=== PATIENT | male | born 1965 | race Two or more races ===

== ENCOUNTER 2018-11-06 23:01 | Inpatient (IN) | payer OTHER ==
[~2018-11-06] VITALS: Ht 182.9 cm; Wt 83.9 kg
--- NOTE | 2018-11-06 23:25 | NUR ---
RLQ PAIN X A FEW DAYS BUT SUDDEN INCREASE TO 10/10 NOW, WOKE HIM UP, STABBING PAIN. RECENTLY WENT TO URGENT CARE WHERE THEY DIAGNOSED HIM WITH DIVERTICULITIS. ON 2 DAYS OF ABX. AOX4, VSS, RESPIRATIONS EVEN AND UNLABORED. NO OTHER COMPLAINTS. READY FOR EVAL. WILL CONT TO MONITOR.
[2018-11-06] MEDS ORDERED: KETOROLAC TROMETHAMINE INJ 30 MG/ML VIAL IV ONE (23:30)
[2018-11-06] MEDS ORDERED: ONDANSETRON HCL/PF 4 MG/2 ML VIAL IVP ONE (23:30)
[2018-11-06] MEDS ORDERED: HYDROMORPHONE INJ 2 MG/ML DISP.SYRIN IV ONE (23:30)
[2018-11-06] MEDS ORDERED: IV NS 0.9% 1,000 ML BAG IV ONE (23:30)
[2018-11-06] MEDS ORDERED: KETOROLAC TROMETHAMINE INJ 30 MG/ML VIAL ONE (23:34)
[2018-11-06] MEDS ORDERED: ONDANSETRON HCL/PF 4 MG/2 ML VIAL ONE (23:34)
[2018-11-06] MEDS ORDERED: HYDROMORPHONE 1 MG/1 ML DISP.SYRIN ONE (23:34)
[2018-11-06 23:49] LABS: APPEARANCE,URINE SL CLOUDY (CLEAR); BILIRUBIN,URINE NEGATIVE (NEGATIVE); BLOOD, URINE NEGATIVE Ery/uL (NEGATIVE); COLOR,URINE YELLOW (YELLOW); KETONES,URINE NEGATIVE (NEGATIVE); LEUKOCYTE ESTERASE ,URINE NEGATIVE (NEGATIVE); NITRITE, URINE NEGATIVE (NEGATIVE); PH,URINE 7.5 (5.0-8.0); PROTEIN,URINE NEGATIVE (NEGATIVE); UGLUCOSE NEGATIVE (NEGATIVE); UROBILINOGEN,URINE 0.2 EU/dL (0.2)
[2018-11-07 00:03] LABS: CALCIUM, SERUM 8.5 mg/dL (8.5-10.1); CARBON DIOXIDE 28 mmol/L (21-32); CHLORIDE 102 mmol/L (98-107); CREATININE 1.3 mg/dL (0.6-1.3); GLUCOSE 109 mg/dL (74-106); POTASSIUM 3.6 mmol/L (3.5-5.1); SODIUM SERUM 139 mmol/L (136-145); UREA NITROGEN, BLOOD 22 mg/dL (7-18)
--- NOTE | 2018-11-07 00:03 | NUR ---
[facility]
[2018-11-07 00:09] LABS: ALANINE AMINOTRANSFERASE 18 U/L (12-78); ALBUMIN 3.5 g/dL (3.4-5.0); ALKALINE PHOSPHATASE 61 U/L (46-116); ASPARTATE AMINOTRANSFERASE 14 U/L (15-37); BILIRUBIN,DIRECT 0.1 mg/dL (0.0-0.2); BILIRUBIN,TOTAL 0.4 mg/dL (0.2-1.0); LIPASE 70 U/L (73-393); TOTAL PROTEIN, SERUM 6.6 g/dL (6.4-8.2)
--- NOTE | 2018-11-07 00:12 | NUR ---
PT BACK FROM CT. CALM AND PLEASANT DEMEANOR. LESS GUARDING OF ABD, ABLE TO LAY LEGS FLAT.
[2018-11-07 00:27] LABS: BASOPHILS % (AUTO) 0.6 % (0.0-2.0); EOSINOPHILS % (AUTO) 0.5 % (0.0-6.0); HEMATOCRIT 42 % (39-51); HEMOGLOBIN 14.5 g/dL (13.5-17.5); LYMPHOCYTES # (AUTO) 1.6 /CMM (0.8-4.8); LYMPHOCYTES % (AUTO) 26.2 % (20.0-44.0); MEAN CORPUSCULAR HGB CONC 35 g/dl (31.0-36.0); MEAN CORPUSCULAR VOLUME 94 fL (80-96); MONOCYTES # (AUTO) 0.3 /CMM (0.1-1.30); MONOCYTES % (AUTO) 5.1 % (2.0-12.0); NEUTROPHILS % (AUTO) 67.6 % (43.0-81.0); PLATELET COUNT (AUTO) 260 /CMM (150-450); RED BLOOD CELL COUNT(AUTO) 4.48 MIL/uL (4.5-6.0)
[2018-11-07] MEDS ORDERED: IV NS 0.9% 1,000 ML IV PRN (00:55)
[2018-11-07] MEDS ORDERED: PIPERACILLIN /TAZOBACTAM 3.375 G VIAL IV ONE ×2 (00:57→05:15)
[2018-11-07] MEDS ORDERED: MORPHINE SULFATE INJ 2 MG/ML DISP.SYRIN IV PRN (01:00)
[2018-11-07] MEDS ORDERED: MAG HYDROX/AL HYDROX/SIMETH 30 ML UDC PO PRN (01:00)
[2018-11-07] MEDS ORDERED: ONDANSETRON HCL/PF 4 MG/2 ML VIAL IVP PRN (01:00)
[2018-11-07] MEDS ORDERED: PIPERACILLIN /TAZOBACTAM 3.375 G in IV D5W 50 ML IV ONE (01:00)
--- NOTE | 2018-11-07 01:02 | NUR ---
Patient is resting comfortably in bed with AT BEDSIDE. Easily aroused. VSS
--- NOTE | 2018-11-07 01:45 | NUR ---
REPORT GIVEN TO NESTOR TELLEZ
--- NOTE | 2018-11-07 01:57 | NUR ---
PT TAKEN TO [facility] WITH SRUTHI DENISE
--- NOTE | 2018-11-07 02:00 | NUR ---
MS GLO[employer] MARKETING INTERN NOTE: PT ADMITTED FROM ER VIA [facility] WITH ADMITTING DIAGNOSIS OF ACUTE APPENDICITIS. PT IS ALERT, ORIENTED X4, AMBULATORY. NO APPARENT DISTRESS NOTED AT THIS TIME. COMPLAINED OF 5/10 RIGHT LOWER QUADRANT PAIN. ON ROOM AIR, BREATHING EVEN AND UNLABORED WITH NORMAL RESPIRATION. IV ON LEFT ANTECUBITAL #20 INTACT AND PATENT WITH IVF NS RUNNING AT 75ML/HR, INFUSING WELL. NO SIGNS/SYMPTOMS OF INFILTRATION NOTED. PERTINENT ASSESSMENT DONE. SKIN IS INTACT. KEPT CLEAN, DRY AND COMFORTABLE. CALL LIGHT PLACED WITHIN REACH. SAFETY AND FALL PRECAUTIONS OBSERVED AND MAINTAINED. ENCOURAGED TO VERBALIZE NEEDS AND TO CALL FOR ASSISTANCE IF NEEDED. WILL CONTINUE TO MONITOR PT.
[2018-11-07 02:19] VITALS: BP 106/55
[2018-11-07] MEDS ORDERED: MORPHINE SULFATE INJ 4 MG/ML DISP.SYRIN ONE (02:20)
[2018-11-07 04:00] VITALS: BP 94/57
[2018-11-07] MEDS ORDERED: PIPERACILLIN /TAZOBACTAM 3.375 G in IV D5W 50 ML IV SCH (06:00)
[2018-11-07 06:20] LABS: MAGNESIUM 1.6 mg/dL (1.8-2.4); PHOSPHORUS 4.1 mg/dL (2.5-4.9)
--- NOTE | 2018-11-07 06:55 | NUR ---
MS RN NOTE: NO CHANGES NOTED THROUGHOUT THE SHIFT. AT BEDSIDE. NO APPARENT DISTRESS NOTED. NO COMPLAINTS OF PAIN OR DISCOMFORT AT THIS TIME. BREATHING EVEN AND UNLABORED WITH NORMAL RESPIRATIONS. IV ON LEFT ANTECUBITAL #20 INTACT AND PATENT, NO SIGNS/SYMPTOMS OF INFILTRATION NOTED. KEPT CLEAN, DRY AND COMFORTABLE. CALL LIGHT PLACED WITHIN REACH. WILL ENDORSE TO DAY SHIFT RN FOR CONTINUITY OF CARE.
[2018-11-07 08:00] VITALS: BP 96/48
[2018-11-07] MEDS: PANTOPRAZOLE 40 MG VIAL IV SCH (09:18)
[2018-11-07] MEDS ORDERED: MORPHINE SULFATE INJ 4 MG/ML DISP.SYRIN IV PRN (09:28)
[2018-11-07 12:00] VITALS: BP 107/51
[2018-11-07] MEDS: Magnesium 1GM/D5W 100ML PREMIX 100 ML IV SCH ×2 (12:30→12:57)
[2018-11-07] MEDS: PIPERACILLIN /TAZOBACTAM 3.375 G in IV D5W 100 ML IV SCH ×2 (12:45→20:15)
[2018-11-07 16:00] VITALS: BP_SYST 105; BP_SYST 107; BP_DIAS 41; BP_DIAS 44
--- NOTE | 2018-11-07 17:58 | NUR ---
RN CLOSING NOTE PT IN BED RESTING. AT BEDSIDE. NO S/S OF RESP DISTRESS/SOB. C/O PAIN 2/10 TOLERABLE AT THE MOMENT IN ABDOMINAL AREA. DENIES N/V. ALL PT NEEDS ANTICIPATED AND MET, SAFETY MEASURES IN PLACE, CALL LIGHT IN REACH. WILL ENDORSE TO GENERAL ACCOUNTING CLERK FOR FRANCHESCA.
[2018-11-07 20:00] VITALS: BP 127/59
--- NOTE | 2018-11-07 20:00 | NUR ---
MS RN NOTES RECEIVED PT ON BED. A/O X4 WITH AT THE BEDSIDE. ON ROOM AIR SATURATING WELL. IV ACCESS ON LAC G20 AND RFA G20 WITH D5NS RUNNING WELL. HEAD OF BED ELEVATED. SIDE RAILS UP. CALL LIGHT WITHIN REACH, BED ALARM ON. WILL CONTINUE TO MONITOR PT CLOSELY.
[2018-11-07] MEDS: IV D5/ 0.9% NACL 1,000 ML IV PRN (20:27)
[2018-11-07] MEDS: ACETAMINOPHEN 650 MG/SUPP.RECT RC PRN (20:37)
--- NOTE | 2018-11-07 21:00 | NUR ---
MS RN NOTES CALLED MACHINE TECH FOR PT HAVING A LOW GRADE FEVER OF 100.3 . COOLING MEASURES DONE. ORDERED TYLENOL FL. WILL CONTINUE TO MONITOR PT
--- NOTE | 2018-11-08 00:18 | NUR ---
MS RN NOTES PT HAVING FEVER OF 101.8F. BLOOD PRESSURE AND HR WNL. NO COMPLAINTS OF PAIN. NO COMPLAINTS OF NAUSEA AND VOMITING. AWAITING ORDERS FOR FEVER.
--- NOTE | 2018-11-08 00:22 | NUR ---
MS RN NOTES NO NEW ORDERS PER GENERAL CLEANER. PER GENERAL CLEANER FAVIOLA. COOLING MEASURES ONLY. WILL CONTINUE TO MONITOR PT CLOSELY.
[2018-11-08] MEDS: PIPERACILLIN /TAZOBACTAM 3.375 G in IV D5W 100 ML IV SCH (03:23)
[2018-11-08 04:00] VITALS: BP 118/55
[2018-11-08] MEDS: ACETAMINOPHEN 650 MG/SUPP.RECT RC PRN (04:02)
--- NOTE | 2018-11-08 04:39 | NUR ---
MS RN NOTES CALLED CLERK CHECKER FOR FEVER OF 103. COOLING MEASURES DONE. FAN TURNED ON AT BEDSIDE. GIVEN PRN TYLENOL. PER CLERK CHECKER OPERATIONS MANAGER ASSISTANT RECHECKED AGAIN IN ONE HOUR. WILL CONTINUE TO MONITOR PT CLOSELY.
[2018-11-08] MEDS: IV D5/ 0.9% NACL 1,000 ML IV PRN ×2 (05:13→21:20)
--- NOTE | 2018-11-08 05:21 | NUR ---
MS RN NOTES PT TEMP NOW 102. BLOOD CULTURES ORDERED. STUDIO HAND INFORMED. WILL CONTINUE TO MONITOR PT CLOSELY.
--- NOTE | 2018-11-08 05:45 | NUR ---
MS RN NOTES PT NO COMPLAINTS OF PAIN. ABDOMEN SOFT, NON TENDER. NO COMPLAINTS OF NAUSEA / VOMITING. WILL CONTINUE TO MONITOR PT CLOSELY.
[2018-11-08 06:01] LABS: EOSINOPHILS % (AUTO) 0.1 % (0.0-6.0); HEMATOCRIT 39 % (39-51); HEMOGLOBIN 13.7 g/dL (13.5-17.5); LYMPHOCYTES # (AUTO) 0.5 /CMM (0.8-4.8); LYMPHOCYTES % (AUTO) 4.4 % (20.0-44.0); MEAN CORPUSCULAR HGB CONC 35 g/dl (31.0-36.0); MEAN CORPUSCULAR VOLUME 93 fL (80-96); MONOCYTES # (AUTO) 0.5 /CMM (0.1-1.30); MONOCYTES % (AUTO) 4.4 % (2.0-12.0); NEUTROPHILS # (AUTO) 9.4 /CMM (1.8-8.9); NEUTROPHILS % (AUTO) 91.1 % (43.0-81.0); PLATELET COUNT (AUTO) 212 /CMM (150-450); WHITE BLOOD COUNT (AUTO) 10.3 K/uL (4.3-11.0)
[2018-11-08 06:16] LABS: CALCIUM, SERUM 7.8 mg/dL (8.5-10.1); CREATININE 1.3 mg/dL (0.6-1.3); MAGNESIUM 1.9 mg/dL (1.8-2.4); POTASSIUM 3.5 mmol/L (3.5-5.1)
--- NOTE | 2018-11-08 06:49 | NUR ---
MS RN NOTES PT HAD FEVER THROUGHOUT THE SHIFT. COOLING MEASURES AND PRN TYLENOL GIVEN. FISHER POUND NET OR TRAP INFORMED. ORDERED CT ABDOMEN AND INCREASED THE ANTIBIOTIC. NO COMPLAINTS OF ABDOMINAL PAIN AND NAUSEA. ABDOMEN SOFT AND NOT RIGID. WILL ENDORSE TO THE AM NURSE FOR CONTINUITY OF CARE.
--- NOTE | 2018-11-08 07:30 | NUR ---
RN NOTES RECEIVED PATIENT ON BED. A/O X4, ABLE TO MAKE NEEDS KNOWN, BREATHING UNLABORED, ON ROOM AIR, SATURATING WELL. DENIES PAIN AT THIS TIME, SKIN IS WARM TO TOUCH, TEMP AT 102- ON COOLING MEASURES, IV ACCESS ON LAC G20 AND RFA G20: BOTH IN PLACE AND INTACT. FLUSHES WELL. WITH ONGOING D5NS RUNNING WELL. REITERATED NPO STATUS. SAFETY MEASURES OBSERVED AND MAINTAINED. SIDE RAILS UP. CALL LIGHT WITHIN REACH, BED ALARM ON. WILL CONTINUE TO MONITOR PATIENT.
[2018-11-08 08:00] VITALS: BP_SYST 116; BP_SYST 137; BP_DIAS 48; BP_DIAS 56
--- NOTE | 2018-11-08 08:20 | NUR ---
RN NOTES PATIENT UNDERWENT CT OF THE ABDOMEN AND PELVIS WITH CONTRAST.
[2018-11-08] MEDS: PANTOPRAZOLE 40 MG VIAL IV SCH (08:23)
[2018-11-08] MEDS: ENOXAPARIN SODIUM 40 MG/0.4 ML DISP.SYRIN SQ SCH (08:24)
[2018-11-08] MEDS ORDERED: CT SWABBABLE VALVE TRANS SET 1 EA INFUS.SET MC ONE (09:40)
[2018-11-08] MEDS ORDERED: IV NS 0.9% 250 ML IV ONE (09:40)
[2018-11-08] MEDS ORDERED: IOHEXOL-300 100 ML VIAL IV ONE (09:40)
--- NOTE | 2018-11-08 10:00 | NUR ---
RN NOTES PATIENT DUE FOR TYLENOL 650 MG AT THIS TIME. TEMPERATURE RECHECKED AND FOUND AT 102.9. TYLENOL 650 MG SUPP GIVEN FOR THE FEVER. COOLING MEASURE MAINTAINED. WILL CONTINUE TO MONITOR PATIENT
--- NOTE | 2018-11-08 10:30 | NUR ---
RN NOTES DR. Rohith GUILLAUME AT BEDSIDE, AND WAS TALKING TO THE PATIENT RE: PLANNED LAPAROSCOPIC APPENDECTOMY WITH POSSIBLE OPEN.
--- NOTE | 2018-11-08 10:50 | NUR ---
RN NOTES PATIENT SIGNED CONSENT FOR PROCEDURE AND ANESTHESIA.
[2018-11-08] MEDS ORDERED: BUPIVACAINE MPF 0.5% W/EPI INJ 30 ML VIAL ONE (11:02)
[2018-11-08] MEDS ORDERED: LIDOCAINE HCL/PF 1% 30 ML SDV ONE (11:02)
--- NOTE | 2018-11-08 11:05 | NUR ---
RN NOTES PATIENT TRANSFERRED TO OR. ON STABLE CONDITION. NOT ON ANY FORM OF DISTRESS. ACCOMPANIED BY 2 OR NURSE AND
[2018-11-08] MEDS ORDERED: MIDAZOLAM HCL 2 MG/2ML VIAL ONE (11:16)
[2018-11-08] MEDS ORDERED: FENTANYL PF 250MCG/5ML AMPUL ONE (11:16)
[2018-11-08] MEDS ORDERED: ROCURONIUM BROMIDE 50 MG/5 ML ONE (11:17)
[2018-11-08] MEDS ORDERED: FAMOTIDINE/PF INJ 20 MG/2 ML VIAL IV ONE (11:17)
[2018-11-08] MEDS ORDERED: GLYCOPYRROLATE 0.2 MG/ML VIAL ONE (11:18)
[2018-11-08] MEDS ORDERED: METOCLOPRAMIDE HCL 10 MG/2 ML VIAL ONE (11:18)
[2018-11-08] MEDS: PIPERACILLIN /TAZOBACTAM 3.375 G in IV D5W 50 ML IV SCH ×2 (12:00→18:30)
--- NOTE | 2018-11-08 15:35 | NUR ---
RN NOTES PATIENT BACK FROM OR. AWAKE, ABLE TO MAKE NEEDS KNOWN, NOT ON ANY FORM OF DISTRESS, ON ROOM AIR, SATING AT 93%, NO COMPLAINS OF PAIN AT THIS TIME, VITAL SIGNS ARE FOLLOWS BP AT 124/69, HR 89. INCISION SITE ON THE NAVEL , MID LOWER QUADRANT AND LEFT QUADRANT OF THE ABDOMEN. SITE DRY AND INTACT. WITH BESSIE DRAIN; DRAINING TO SEROUS DRAINAGE. PATIENT INSTRUCTED TO USE INCENTIVE SPIROMETRY AND ENCOURAGE TO AMBULATE ORDERED. CALL LIGHT PLACED WITHIN EASY REACH, ENCOURAGE TO CALL FOR ASSISTANCE AND HELP, WILL CONTINUE TO MONITOR THE PATIENT
[2018-11-08 16:00] VITALS: BP 126/69
[2018-11-08] MEDS ORDERED: MENTHOL/CETYLPYRD (CEPACOL) 1 LOZ LOZENGE PO PRN (17:00)
[2018-11-08] MEDS: ACETAMINOPHEN 325 MG TABLET PO PRN (17:37)
--- NOTE | 2018-11-08 19:37 | NUR ---
RN NOTES ENDORSED PATIENT FOR CONTINUITY OF CARE. PATIENT ON STABLE CONDITION. NO ACUTE CHANGES THROUGHOUT SHIFT. SAFETY MEASURES OBSERVED AT ALL TIMES. ALL NEEDS ANTICIPATED. CALL LIGHT WITHIN EASY REACH.
[2018-11-08 20:00] VITALS: BP 121/65
[2018-11-09] MEDS: PIPERACILLIN /TAZOBACTAM 3.375 G in IV D5W 50 ML IV SCH ×5 (00:24→23:53)
[2018-11-09 04:00] VITALS: BP 142/80
[2018-11-09] MEDS: IV D5/ 0.9% NACL 1,000 ML IV PRN ×2 (05:13→22:52)
--- NOTE | 2018-11-09 08:00 | NUR ---
ms rn received on bed, awake,alert,oriented x4,not in any form of distress, respirations even and unlabored,no sob noted, lungs are clear,abdomen soft,positive bowel sounds,denies pain at this time.,s/p lap appendectomy w/ tram drain attached to insicion wound.
[2018-11-09] MEDS: PANTOPRAZOLE 40 MG VIAL IV SCH (08:41)
--- NOTE | 2018-11-09 08:45 | NUR ---
ms guardado breakfast served,due meds given,tolerated well.
[2018-11-09] MEDS: ENOXAPARIN SODIUM 40 MG/0.4 ML DISP.SYRIN SQ SCH (08:46)
--- NOTE | 2018-11-09 09:00 | NUR ---
ms rn was seen by dr. alcaraz awaiting for orders.
[2018-11-09 09:56] LABS: BASOPHILS % (AUTO) 0.2 % (0.0-2.0); EOSINOPHILS % (AUTO) 0.1 % (0.0-6.0); HEMATOCRIT 39 % (39-51); HEMOGLOBIN 13.3 g/dL (13.5-17.5); LYMPHOCYTES # (AUTO) 0.6 /CMM (0.8-4.8); LYMPHOCYTES % (AUTO) 3.6 % (20.0-44.0); MEAN CORPUSCULAR HGB CONC 34 g/dl (31.0-36.0); MEAN CORPUSCULAR VOLUME 94 fL (80-96); MONOCYTES # (AUTO) 0.7 /CMM (0.1-1.30); MONOCYTES % (AUTO) 4.7 % (2.0-12.0); NEUTROPHILS # (AUTO) 14.4 /CMM (1.8-8.9); NEUTROPHILS % (AUTO) 91.4 % (43.0-81.0); PLATELET COUNT (AUTO) 252 /CMM (150-450); RED BLOOD CELL COUNT(AUTO) 4.14 MIL/uL (4.5-6.0); WHITE BLOOD COUNT (AUTO) 15.8 K/uL (4.3-11.0)
[2018-11-09 12:00] VITALS: BP 122/75
--- NOTE | 2018-11-09 12:00 | NUR ---
ms rn paged eulalia simpson of dr. dean for patient's eval per family request.
[2018-11-09] MEDS: ACETAMINOPHEN 325 MG TABLET PO PRN (12:51)
--- NOTE | 2018-11-09 16:00 | NUR ---
ms rn paged eulalia again for eval, will come this later afternoon.
--- NOTE | 2018-11-09 18:00 | NUR ---
ms rn dressing reinforced to surgical site,all needs attended.
--- NOTE | 2018-11-09 19:15 | NUR ---
MS RN NOTES RECEIVED PT ON BED. A/OX4 WITH BEDSIDE. ON ROOM AIR. SATURATING WELL. IV ACCESS ON LAC , RFA G20 D5NS @125CC/HR PATENT AND INTACT. BESSIE DRAIN SEROSANGUINEOUS DRAIN. HEAD OF BED ELEVATED. SIDE RAILS UP. CALL LIGHT WITHIN REACH. BED ALARM ON. WILL CONTINUE TO MONITOR PT CLOSELY
[2018-11-09 20:00] VITALS: BP 132/74
[2018-11-10 04:00] VITALS: BP 120/62
[2018-11-10] MEDS: PIPERACILLIN /TAZOBACTAM 3.375 G in IV D5W 50 ML IV SCH ×2 (05:43→11:42)
--- NOTE | 2018-11-10 06:52 | NUR ---
MS RN NOTES NO ACUTE CHANGES NOTED DURING THE SHIFT. PROVIDED COMFORT AND SAFETY. WILL ENDORSE TO THE AM NURSE FOR CONTINUITY OF CARE.
[2018-11-10 07:02] LABS: EOSINOPHILS % (AUTO) 0.8 % (0.0-6.0); HEMATOCRIT 36 % (39-51); HEMOGLOBIN 12.4 g/dL (13.5-17.5); LYMPHOCYTES # (AUTO) 1.1 /CMM (0.8-4.8); LYMPHOCYTES % (AUTO) 13.6 % (20.0-44.0); MEAN CORPUSCULAR HGB CONC 35 g/dl (31.0-36.0); MEAN CORPUSCULAR VOLUME 93 fL (80-96); MONOCYTES # (AUTO) 0.5 /CMM (0.1-1.30); MONOCYTES % (AUTO) 6.8 % (2.0-12.0); NEUTROPHILS # (AUTO) 6.1 /CMM (1.8-8.9); NEUTROPHILS % (AUTO) 78.8 % (43.0-81.0); PLATELET COUNT (AUTO) 227 /CMM (150-450); RED BLOOD CELL COUNT(AUTO) 3.85 MIL/uL (4.5-6.0); WHITE BLOOD COUNT (AUTO) 7.7 K/uL (4.3-11.0)
--- NOTE | 2018-11-10 07:40 | NUR ---
RN NOTE; PATIENT RECEIVED ALERT AWAKE ORIENTED X 4. ON ROOM AIR, NO BREATHING DIFFICULTY NOTED. DENIES PAIN & DISCOMFORT. BESSIE DRAIN INTACT WITH SANGUINES OUT PUT. SAFETY MEASURES OBSERVED. ENCOURAGE TO USE CALL LIGHT FOR ASSISTANCE. WILL CONTINUE TO MONITOR.
[2018-11-10 08:00] VITALS: BP 145/82
[2018-11-10] MEDS: ENOXAPARIN SODIUM 40 MG/0.4 ML DISP.SYRIN SQ SCH (08:03)
[2018-11-10] MEDS: PANTOPRAZOLE 40 MG VIAL IV SCH (08:03)
[2018-11-10] MEDS ORDERED: AMOX-430 PO (12:15)
--- NOTE | 2018-11-10 13:14 | NUR ---
RN NOTE; PATIENT DISCHARGE TO HOME WITH HOME HEALTH ALERT AWAKE ORIENTED X 4. ON ROOM AIR, NO BREATHING DISTRESS NOTED. DENIES PAIN & DISCOMFORT. BESSIE DRAIN INTACT, CARE DONE HOME EDUCATION GIVEN HOW TO TAKE CARE AT BESSIE DRAIN AT HOME, SUPPLIES PROVIDED. IV LINE REMOVED, APPLIED PRESSURE DRESSING. SEEN BY WILLY GODINEZ & DR. CALDERA AT BEDSIDE. PATIENT REFUSED FLU VACCINE & SKIN PICTURE. SKIN INTACT, NO REDNESS NOTED. PRESCRIPTION PROVIDED. DISCHARGE INSTRUCTIONS GIVEN, PATIENT & FAMILY VERBALIZE TO UNDERSTAND. LEFT FROM FLOOR WITH ALL BELONGINGS.
== END 2018-11-10 13:10 | disposition home health service (06) | DRG 340 ==
LOC: ER 23:03 → MEDSG1 11-07 01:19
PROVIDERS: ADMIT Internal Medicine; ATTEND Internal Medicine
PROC: 0DTJ4ZZ Resection of Appendix, Percutaneous Endoscopic Approach (ICD-10-PCS; principal; 2018-11-08 11:00)
DX: K35.32 Acute appendicitis with perforation, localized peritonitis, and gangrene, without abscess (principal); Z87.442 Personal history of urinary calculi; E83.42 Hypomagnesemia; D72.829 Elevated white blood cell count, unspecified
CPT/HCPCS: 36415; 71045-TC; 80048-TC; 80061-TC; 80076-TC; 81000-TC; 83605-TC; 83690-TC; 83735-TC; 84100-TC; 84484-TC; 85025-TC; 85730-TC; 86850-TC; 87040-TC; 87081-TC; 87086-TC; 88304-TC; A4606; A6402; C9113; G0378; J1100; J1170; J1650; J1885; J2250; J2270; J2405; J2543; J2704; J2710; J2765; J3010; J3475; J3490; J7030; J7042; J7050; J7060; Q9967; Z7610